=== PATIENT | female | born 1990 | race Two or more races ===

== ENCOUNTER 2016-10-27 18:21 | Emergency (ER) | payer OTHER, SELFPAY ==
[~2016-10-27] VITALS: Ht 172.7 cm; Wt 97.6 kg
[2016-10-27] MEDS ORDERED: HYDROmorphone 1 MG/ML, 1ML ONE (19:29)
[2016-10-27] MEDS ORDERED: ONDANSETRON 2MG/ML, 2ML ONE (19:29)
[2016-10-27] MEDS ORDERED: ONDANSETRON 2MG/ML, 2ML IVPush ONE (19:30)
[2016-10-27] MEDS ORDERED: SODIUM CHLORIDE 0.9% 1,000ML IVBOLUS ONE (19:30)
[2016-10-27] MEDS ORDERED: SODIUM CHLORIDE FLUSH 10ML SYR IVF ONE (19:30)
[2016-10-27] MEDS ORDERED: HYDROmorphone 1 MG/ML, 1ML IVPush PRN (19:30)
[2016-10-27 19:31] LABS: HEMATOCRIT 38.6 % (34.6-47.8); HEMOGLOBIN 12.8 g/dL (11.7-16.4); WHITE BLOOD COUNT 9.9 x10^3/uL (3.4-10)
[2016-10-27 19:33] LABS: BLOOD UREA NITROGEN 11 mg/dL (7-18)
[2016-10-27 20:30] VITALS: BP 135/60
[2016-10-27] MEDS ORDERED: POTASSIUM CHLORIDE 20 MEQ TAB.ER.PRT ONE (21:23)
[2016-10-27] MEDS ORDERED: POTASSIUM CHLORIDE 20 MEQ TAB.ER.PRT PO ONE (21:30)
== END 2016-10-27 21:56 ==
LOC: ED 21:30
DX: R10.32 Left lower quadrant pain (principal)
CPT/HCPCS: 36415; 76830; 80048; 81003; 82040; 84702; 84703; 85025; 86901; 96361; 96374; 96375; 99285; J1170; J2405; J7030